=== PATIENT | female | born 2000 | race Caucasian/White ===

== ENCOUNTER 2022-08-07 23:25 | Emergency (ER) | payer OTHER ==
[~2022-08-07] VITALS: Ht 167.6 cm; Wt 71.0 kg
[2022-08-07 23:32] VITALS: BP 147/96
[2022-08-08] MEDS ORDERED: ACETAMINOPHEN 325MG TABLET PO ONE (01:30)
[2022-08-08] MEDS ORDERED: IBUP-2029 MT (01:49)
== END 2022-08-08 02:17 | disposition home or self-care (01) ==
LOC: ER 23:25
DX: S43.401A Unspecified sprain of right shoulder joint, initial encounter (principal); Z88.0 Allergy status to penicillin; X58.XXXA Exposure to other specified factors, initial encounter; Y93.89 Activity, other specified; Y92.89 Other specified places as the place of occurrence of the external cause; Y99.8 Other external cause status
CPT/HCPCS: 73030; 99283; A4565